=== PATIENT | female | born 1955 | race Caucasian/White ===

== ENCOUNTER → 2016-12-31 | Outpatient (CLI) | payer BC | LOC: KOH-I 12:05 | DX: R06.02 Shortness of breath (principal); J20.9 Acute bronchitis, unspecified; R05 Cough; R06.2 Wheezing; R06.89 Other abnormalities of breathing; Z88.1 Allergy status to other antibiotic agents | CPT/HCPCS: 71020 ==

== ENCOUNTER → 2017-01-12 | Outpatient (CLI) | payer BC | LOC: KOH-I 11:04 | DX: M25.511 Pain in right shoulder (principal) | CPT/HCPCS: 73030 ==